=== PATIENT | male | born 1995 | race Caucasian/White ===

== ENCOUNTER 2020-09-25 17:37 | Outpatient (REF) | payer OTHER, SELFPAY | END 2020-09-25 17:38 | disposition home or self-care (01) | LOC: HO.LAB 17:37 | PROVIDERS: Visit Provider Internal Medicine | DX: Z20.828 Contact with and (suspected) exposure to other viral communicable diseases (principal) | CPT/HCPCS: C9803; U0003 ==

== ENCOUNTER 2023-04-04 18:26 | Emergency (ER) | payer OTHER, SELFPAY ==
[2023-04-04 18:29] VITALS: BP 147/97; PULSE 80; RESP 18; TEMP 36.7; O2SAT 97; BMI 29.8
--- NOTE | 2023-04-04 18:30 | ED_ITS ---
HPI - Chest Pain General Chief Complaint: General Medical Stated Complaint: Chest Pain/Left arm pain/ Head pain Time Seen by Provider: 04/04/23 19:57 Related Data Previous Rx's Medication Instructions Recorded ibuprofen 600 mg tablet 600 mg PO Q6H PRN fever or pain 04/04/23 #30 tabs Allergies Allergy/AdvReac Type Severity Reaction Status Date / Time No Known Allergies Allergy Unverified 06/14/20 19:51 [No Known Allergies*] Physical Exam Vital Signs: Vital Signs: Last Vital Signs Temp 98.4 F 04/04/23 20:00 Pulse 79 04/04/23 20:04 Resp 16 04/04/23 20:04 BP 121/83 04/04/23 20:04 Pulse Ox 98 04/04/23 20:04 O2 Del Method Room Air 04/04/23 20:04 BMI result Body Mass Index 29.8 Course Course Course Narrative: RME: 27yo M w/no sig PMHx c/o intermittent left sided CP radiaiting to LUE and head x awhile worsening today. Also reports assoc dizziness when standing lasting a few seconds. Admits to similar sx many years ago w/negative w/u. denies SOB Anxious during eval, VSS EKG, labs, CXR ordered Full HPI, ROS and PE to be performed by primary ED provider. Medications Administered Discontinued Medications Generic Name Dose Route Start Last Admin Trade Name Adamq PRN Reason Stop Dose Admin Ketorolac Tromethamine 30 mg 04/04/23 20:06 04/04/23 20:15 Ketorolac Tromethamine 30 Mg/Ml Vial IVPUSH 04/04/23 20:07 30 mg ONCE ONE Administration Medical Decision Making Lab Data 04/04/23 18:55 04/04/23 18:55 Labs: Lab Results 04/04/23 04/04/23 04/04/23 Range/Units 18:55 18:55 18:55 WBC 9.5 (4.8-10.8) X10*3/uL RBC 4.85 (4.60-5.80) X10*6/uL Hgb 14.0 (14.0-18.0) g/dl Hct 41.1 L (42.0-52.0) % MCV 84.7 (80.0-98.0) fL MCH 28.9 (27.0-33.0) pg MCHC 34.1 (31.0-36.0) g/dl RDW 13.2 (11.0-16.0) % Plt Count 317 (160-400) X10*3/uL MPV 9.4 (9.4-12.4) fL Immature Gran % (Auto) 0.3 (0.0-0.4) % Neut % (Auto) 69.6 (45-73) % Lymph % (Auto) 20.6 (20-40) % Bosque % (Auto) 8.4 (2-11) % Eos % (Auto) 0.7 (0-4) % Baso % (Auto) 0.4 (0-2) % Lymph # (Auto) 2.0 (1.2-4.9) X10*3/uL [place] # (Auto) 0.8 (0.1-1.2) X10*3/uL Eos # (Auto) 0.1 (0.0-0.4) X10*3/uL Baso # (Auto) 0.0 (0.0-0.2) X10*3/uL Abs Immat Gran (auto) 0.03 (0.00-0.03) X10*3/uL Absolute Neuts (auto) 6.6 (2.0-8.3) x10*3/uL Absolute Nucleated RBC 0.000 (0.0-0.012) X10*3/uL Nucleated RBC % (auto) 0.0 (0.0-0.2) /100WBC PT (10.0-13.1) SEC INR (0.9-1.1) Sodium 140 (135-145) mmol/L Potassium 3.9 (3.3-5.1) mmol/L Chloride 102 (96-108) mmol/L Carbon Dioxide 27 (22-29) mmol/L Anion Gap 15 (12-20) BUN 10 (9-16) mg/dL Creatinine 1.03 (0.5-1.4) mg/dL Estim Creat Clear Calc 111.9 Estimated GFR > 60 Random Glucose 129 H (60-115) mg/dL Calcium 9.8 (8.4-10.2) mg/dL Magnesium 2.2 (1.6-2.6) mg/dL Total Bilirubin 0.7 (0.0-1.0) mg/dL Direct Bilirubin 0.2 (0.0-0.5) mg/dL AST 14 (5-37) U/L ALT 11 (0-40) U/L Alkaline Phosphatase 90 (39-117) U/L Troponin I High Sens < 2.7 (<3.5-35.0) ng/L Total Protein 7.9 (6.5-8.0) g/dL Albumin 4.6 (3.5-5.0) g/dL TSH 0.79 (0.32-4.0) uIU/mL 04/04/23 Range/Units 18:55 WBC (4.8-10.8) X10*3/uL RBC (4.60-5.80) X10*6/uL Hgb (14.0-18.0) g/dl Hct (42.0-52.0) % MCV (80.0-98.0) fL MCH (27.0-33.0) pg MCHC (31.0-36.0) g/dl RDW (11.0-16.0) % Plt Count (160-400) X10*3/uL MPV (9.4-12.4) fL Immature Gran % (Auto) (0.0-0.4) % Neut % (Auto) (45-73) % Lymph % (Auto) (20-40) % Bosque % (Auto) (2-11) % Eos % (Auto) (0-4) % Baso % (Auto) (0-2) % Lymph # (Auto) (1.2-4.9) X10*3/uL Bosque # (Auto) (0.1-1.2) X10*3/uL Eos # (Auto) (0.0-0.4) X10*3/uL Baso # (Auto) (0.0-0.2) X10*3/uL Abs Immat Gran (auto) (0.00-0.03) X10*3/uL Absolute Neuts (auto) (2.0-8.3) x10*3/uL Absolute Nucleated RBC (0.0-0.012) X10*3/uL Nucleated RBC % (auto) (0.0-0.2) /100WBC PT 11.5 (10.0-13.1) SEC INR 1.0 (0.9-1.1) Sodium (135-145) mmol/L Potassium (3.3-5.1) mmol/L Chloride (96-108) mmol/L Carbon Dioxide (22-29) mmol/L Anion Gap (12-20) BUN (9-16) mg/dL Creatinine (0.5-1.4) mg/dL Estim Creat Clear Calc Estimated GFR Random Glucose (60-115) mg/dL Calcium (8.4-10.2) mg/dL Magnesium (1.6-2.6) mg/dL Total Bilirubin (0.0-1.0) mg/dL Direct Bilirubin (0.0-0.5) mg/dL AST (5-37) U/L ALT (0-40) U/L Alkaline Phosphatase (39-117) U/L Troponin I High Sens (<3.5-35.0) ng/L Total Protein (6.5-8.0) g/dL Albumin (3.5-5.0) g/dL TSH (0.32-4.0) uIU/mL Discharge Plan Discharge Clinical Impression: Musculoskeletal chest pain Patient Disposition: Home, Self-Care Instructions: Noncardiac Chest Pain (ED) Additional Instructions: Your chest pain is not from the heart Take ibuprofen for pain Prescriptions: New ibuprofen 600 mg tablet 600 mg PO Q6H PRN (Reason: fever or pain) Qty: 30 0RF Stand Alone Forms: Work/School Release Interventions: ED Discharge Assessment Last Done: 04/04/23 20:19 Discharge Date/Time: 04/04/23 20:19
[2023-04-04 20:00] VITALS: BP 104/72; PULSE 67; RESP 16; TEMP 36.9; O2SAT 98
[2023-04-04 20:04] VITALS: BP 121/83; PULSE 79; RESP 16; O2SAT 98
--- NOTE | 2023-04-04 20:14 | MHC.EDTECH ---
PER PROVIDER ALFONSO SAID NOT TO DO ORTHOSTATICS VITALS .
== END 2023-04-04 20:19 | disposition home or self-care (01) ==
PROVIDERS: Emergency Provider Internal Medicine; PCP Internal Medicine
DX: R07.89 Other chest pain (principal)
CPT/HCPCS: 36415; 71045; 80048; 80076; 83735; 84443; 84484; 85025; 85610; 93005; 96374; 99284; J1885

== ENCOUNTER 2023-06-16 16:43 | Emergency (ER) | payer SELFPAY ==
[2023-06-16 17:54] VITALS: BP 136/100; PULSE 78; RESP 18; TEMP 36.8; O2SAT 98; BMI 27.2
--- NOTE | 2023-06-16 17:55 | ED_ITS ---
HPI - General Adult General Chief complaint: General Medical Stated complaint: Sore throat, body aches, fever Time Seen by Provider: 06/16/23 19:02 Source: patient Mode of arrival: ambulatory Limitations: no limitations History of Present Illness HPI narrative: Patient is a 28 year old male who presents to the ED since he's experiencing body aches, nasal congestion, throat pain, and headaches. He reports that his symptoms started yesterday morning and vomited while at work. His daughter is currently sick with the same symptoms. She was seen at a clinic and tested negative for COVID and flu. He notes associated sinus pressure due to the congestion. Patient took mucinex to help alleviate his symptoms. Related Data Previous Rx's Medication Instructions Recorded ibuprofen 600 mg tablet 600 mg PO Q6H PRN fever or pain 04/04/23 #30 tabs Allergies Allergy/AdvReac Type Severity Reaction Status Date / Time No Known Allergies Allergy Unverified 06/14/20 19:51 [No Known Allergies*] Review of Systems Constitutional: Constitutional: Reports body ache(s), Reports fatigue and Reports headache(s) ENT: Reports headache(s), Reports nasal congestion, Reports sinus pain and R eports sore throat Cardiovascular: Cardiovascular: Denies chest pain and Denies dyspnea Respiratory: Respiratory: Reports cough, Reports pain with cough and Denies dyspnea Gastrointestinal: Gastrointestinal: Denies abdominal pain and Reports vomiting Musculoskeletal: Musculoskeletal: Denies back pain Neurologic: Reports headache(s) Endocrine: Endocrine: Reports fatigue [facility] Social History Social History Advance Directives: No Advance Directives Information Provided: No Physical Exam ED Vital Signs: Vital Signs - 24 hr 06/16/23 17:54 Temperature 98.2 F Pulse Rate 78 Respiratory Rate 18 Blood Pressure 136/100 H Pulse Oximetry 98 Oxygen Delivery Method Room Air BMI result Body Mass Index 27.2 Const General: cooperative, healthy appearing, comfortable, no acute distress, alert, awake and Physically active Orientation/consciousness: patient oriented x3 Limitations: no limitations HENMT Head: Yes normocephalic and Yes atraumatic Face and sinus: Yes face symmetric Mouth: Normal oral and palatal mucosa present and tongue normal Teeth and gingiva: dentition normal Throat: No posterior oropharynx normal (Erythematous without exudates) Neck Neck: Yes full ROM and No no meningeal signs Resp Effort & Inspection: normal respiratory effort and able to speak in complete sentences Auscultation: clear to auscultation bilaterally Cardio Rate: regular rate Rhythm: regular rhythm Skin General skin exam: no rashes or lesions noted Neuro General: patient oriented x3 and No no meningeal signs Course Course Course Narrative: This is an RME: Additional HPI, ROS, PE not included below will be deferred to primary provider. This is a [id number]-male, presenting to the ER with complaints of sore throat, body aches since yesterday. BL tonsils with erythema and exudates. Admits to vomiting two times today. No vomiting. Daughter at home is sick with similar symptoms. Plan: COVID/RSV/FLU, strep Medical Decision Making Medical Decision Making MDM Narrative: 28-year-old male presents for evaluation of upper respiratory symptoms. He tested negative for influenza, COVID, strep, RSV. His daughter had similar symptoms indicating likely viral etiology. Patient may discharge with symptomatic care only Differential Diagnosis Differential Diagnoses: The differential diagnosis associated with the presentation includes Upper respiratory infection Acute viral syndrome COVID-19 Influenza Strep pharyngitis Lab Data Labs: Lab Results 06/16/23 Range/Units 18:20 Influenza Type A (PCR) NEGATIVE (Negative) Influenza Type B (PCR) NEGATIVE (Negative) RSV RNA Qual (PCR) NEGATIVE (Negative) SARS-CoV-2 RNA (RT-PCR) NEGATIVE (Negative) S. pyogenes GrpA SANTO Negative (Negative) Discharge Plan Discharge Clinical Impression: Acute upper respiratory infection Patient Disposition: Home, Self-Care Instructions: Upper Respiratory Infection (ED) Additional Instructions: You tested negative for COVID, influenza, RSV, strep throat. Use Motrin/Tylenol for body aches You may use [id number] decongestion or cough medicine Your symptoms should improve in the next 3-5 days Drink lots of water Follow-up your primary doctor Prescriptions: No Action ibuprofen 600 mg tablet 600 mg PO Q6H PRN (Reason: fever or pain) Qty: 30 0RF Stand Alone Forms: Work/School Release
[2023-06-16 18:35] LABS: IDNOW Serial# 08D9AD1C; Strep A Nucleic Acid Negative (Negative)
[2023-06-16 19:22] LABS: Influenza A PCR NEGATIVE (Negative); Influenza B PCR NEGATIVE (Negative); Resp Syncy Virus RNA Qual PCR NEGATIVE (Negative); SARS COV2 PCR INHOUSE NEGATIVE (Negative)
== END 2023-06-16 20:03 | disposition home or self-care (01) ==
PROVIDERS: Physician Assistant Medical; Emergency Provider Internal Medicine
DX: J06.9 Acute upper respiratory infection, unspecified (principal); Z20.822 Contact with and (suspected) exposure to COVID-19; Z20.828 Contact with and (suspected) exposure to other viral communicable diseases; J02.9 Acute pharyngitis, unspecified
CPT/HCPCS: 0241U; 87651; 99282; 99283

== ENCOUNTER 2023-08-27 08:54 | Outpatient (AMB) | payer OTHER, SELFPAY ==
[2023-08-27 08:55] VITALS: BP 140/96; PULSE 82; BMI 27.3
--- NOTE | 2023-08-27 08:55 | A.OFFPC_ITS ---
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: Not Required per policy Accompanied by: Self / Same As Patient Allergies No Known Allergies [No Known Allergies*] Allergy (Verified 08/27/23 09:21) Medication List - Last Reconciled 08/27/23 by Tremayne Pitts MD ibuprofen 600 mg PO Q6H PRN Tobacco use date assessed: 08/27/23 Dental Screening Dental Screen Date: 08/27/23 Did you have a dental visit in the last 12 months?: Yes Did you have a dental problem in the last 6 months where you did not have access to dental care?: No Was dental information given to patient?: Patient has dentist HPI New patient-requesting physical HPI Details Patient comes in today for his annual physical examination and to establish care - is a new patient to the practice States that he has not had a PCP in the past few years and he used to live in [place], [place] and just recently moved here to [facility]. States that he has been experiencing recurrent left-sided chest wall pain and left upper back pain (around the left scapula) for at least 6 to 7 years now Relates that he has been to the ER several times for the same complaint over the past several years and more recently here to the ER at [facility] in March 2023 for left-sided chest wall pains States that he has been checked out multiple times and advised of the same thing - that his recurrent left chest wall pain is mostly muscular in origin and has nothing to do with his heart States that his chest wall pains are mostly sharp and occur in spasms when they come on and he had not been able to identify anything in particular that seems to trigger or aggravate them but notes that they do not seem to be related to activity or exertion as they tend to occur randomly at any time throughout the day or night Relates (+) some sensation of shortness of breath mostly when his chest wall pain is more pronounces and states that he would have a hard time sleeping at night when they are ongoing but otherwise has had no trouble with his breathing ordinarily He denies any headaches or dizziness No nausea/vomiting, no abdominal pain No change in bowel habits noted He denies any acute urinary symptoms PFSH Medical History (Updated 08/27/23 @ 10:02 by Tremayne Pitts MD) Overweight (BMI 25.0-29.9) Surgical History (Updated 08/27/23 @ 09:25 by Tremayne Pitts MD) No pertinent past surgical history Social History Housing: House Patient Tobacco Use Status: Never used Tobacco e-Cigarette/Vaping Use: Currently Using Current occupational status: employed Cognitive needs: No Hearing needs: No Vision needs: No Questionnaire PHQ-9 Over the last 2 weeks, how often have you been bothered by any of the following problems? 1. Little interest or pleasure in doing things: not at all 2. Feeling down, depressed, or hopeless: not at all 3. Trouble falling or staying asleep, or sleeping too much: not at all 4. Feeling tired or having little energy: not at all 5. Poor appetite or overeating: not at all 6. Feeling bad about yourself - or that you are a failure or have let yourself or your family down: not at all 7. Trouble concentrating on things, such as reading the newspaper or watching television: not at all 8. Moving or speaking so slowly that other people could have noticed. Or the opposite - being so fidgety or restless that you have been moving around a lot more than usual: not at all 9. Thoughts that you would be better off or of hurting yourself in some way: not at all Total score: 0 Depression Screening Interpretation: Negative Depression Screening Done: Yes 60068 - PHQ-9 Billing: Yes Source: Developed by Drs. Harish Frank, Diamond Pruitt, Dylan Worrell and colleagues, with an educational ricardo from [employer]. Thrive Questionnaire Date Thrive assessed: 08/27/23 I am a: Patient What is your living situation today?: I have a steady place to live Within the past 12 months, did the food you bought not last and you didn't have the money to get more?: Never true Within the past 12 months, did you worry whether your food would run out before you got money to buy more?: Never true Do you have trouble paying for medicines?: No Do you have trouble getting transportation to medical appointments?: No Do you have trouble paying your heating and electricity bill?: No Do you have trouble taking care of your child, family member or friend?: No Do you have trouble with day-to-day activities such as bathing, preparing meals, shopping, managing finances, etc.?: No Are you currently unemployed and looking for a job?: No Are you interested in more education?: No Please select the resources that you would like help with: None Currently or been in a relationship where the following occur: no concerns reported AUDIT C Alcohol Use Questionnaire (AUDIT-C) 1. How often do you have a drink containing alcohol?: Never Total Score: 0 Score Reviewed/Action Taken: Yes CHERI-7 AMB Questionnaire CHERI-7 Date CHERI - 7 assessed: 08/27/23 Feeling nervous, anxious, or on edge: 0 = Not at all Not being able to stop or control worryin = Not at all Worrying too much about different things: 0 = Not at all Trouble relaxin = Not at all Being so restless that it is hard to sit still: 0 = Not at all Becoming easily annoyed or irritable: 0 = Not at all Feeling afraid as if something awful might happen: 0 = Not at all Total CHERI-7 score (0-4 normal; 5-9 mild; 10-14 moderate; 15-21 severe): 0 Source: Developed by Drs. Harish Frank, Diamond Pruitt, Dylan Worrell and colleagues, with an educational ricardo from [employer]. Review of Systems Const Denies chills, Reports difficulty sleeping (mostly due to his persistent left- sided chest wall pain), Denies fatigue, Denies fever(s), Denies headache(s), Denies malaise and Denies weakness Eyes Denies blurry vision, Denies change in vision, Denies irritation and Denies itchy eyes ENT Denies dysphagia, Denies dizziness, Denies otalgia, Denies headache(s), Denies nasal congestion, Denies neck pain, Denies odynophagia and Denies sore throat Card Reports chest pain (persistent over the left chest wall area), Denies rapid heart rate, Denies irregular heart rhythm, Denies palpitations and Denies dyspnea Resp Denies chest congestion, Denies cough, Denies dyspnea and Denies wheezing GI Denies abdominal pain, Denies bloating, Denies constipation, Denies dysphagia, Denies heartburn, Denies diarrhea, Denies nausea, Denies odynophagia and Denies vomiting Denies hematuria, Denies difficulty urinating, Denies dysuria, Denies urinary frequency and Denies urinary urgency Musc Reports back pain (on and off over the left upper back around the scapular area), Denies arthralgias, Denies joint swelling, Denies muscle weakness and Denies neck pain Skin/Breast Denies change in pigmentation, Denies lesions, Denies rash and Denies unusual bruising Neuro Denies dizziness, Denies headache(s), Denies paresthesias and Denies weakness Endo Denies fatigue and Denies palpitations Aller/Immun Denies itchy eyes and Denies wheezing Physical exam (Primary Care) Vital Signs: Last Vital Signs Pulse 82 08/27/23 08:55 BP 140/96 H 08/27/23 08:55 Oxygen Delivery Method Room Air 08/27/23 08:55 BMI result Body Mass Index 27.3 Tobacco/Smoking Status: Tobacco use Status Tobacco use date assessed 08/27/23 08/27/23 09:04 Patient Tobacco Use Status Never used Tobacco 08/27/23 09:04 e-Cigarette/Vaping Use Currently Using 08/27/23 09:04 PHQ-9: PHQ-9 Score PHQ-9: Total score 0 08/27/23 09:04 Depression Screening Interpretation: Negative Thrive Assessment: Date of Thrive Assessment Date Thrive assessed 08/27/23 08/27/23 09:04 Currently or been in a relationship where the following occur: no concerns reported Const General: no acute distress, alert and awake Orientation/consciousness: patient oriented x3 HENMT Head: Yes normocephalic and Yes atraumatic Ears: external ears normal, TM's normal bilaterally and EAC's normal General nose exam: No nasal discharge present Face and sinus: Yes normal facial exam and Yes sinuses nontender Teeth and gingiva: dentition normal Throat: Yes posterior oropharynx normal and Yes tonsils normal (no TP congestion) Eyes Eyelids: Yes eyelids normal Conjunctivae: conjunctivae normal Pupils: Equal, round and reactive pupils present EOM: EOMs intact bilaterally Neck Neck: Yes no lymphadenopathy and Yes supple Thyroid: Thyroid normal Chest Other: NO reproducible tenderness on exam of the left chest wall, even with deep palpation of the chest wall muscles Chest palpation & inspection: normal inspection of the chest and no tenderness Resp Auscultation: clear to auscultation bilaterally, no rales and no wheezes Cardio Rate: regular rate Rhythm: regular rhythm Heart sounds: no murmurs GI Palpation (GI): Soft to palpation, nontender and No hepatosplenomegaly present Auscultation: normal bowel sounds General: Yes no CVA tenderness Back/Spine/Pelvis Other: NO tenderness on palpation / exam of the left upper back muscles and over the left periscapular/scapular areas Back: no CVA tenderness Thoracic/Lumbar Spine: thoracic and lumbar spine normal to inspection Skin Lesions: no lesions Rashes: no rashes Neuro General: patient oriented x3, moves all extremities, no focal motor deficits and CN's II-XI intact bilaterally Cranial nerves: Yes Equal, round and reactive pupils present Cognition (Neuro): normal cognition Gait exam (Neuro): Normal gait present Extrem General: Yes no clubbing, cyanosis or edema Left upper extremity: shoulder/upper arm Details: normal ROM; no tenderness Results Reviewed Results Reviewed: Laboratory Tests 04/04/23 18:55 WBC 9.5 Hgb 14.0 Hct 41.1 L Plt Count 317 Sodium 140 Potassium 3.9 Creatinine 1.03 Estimated GFR > 60 Random Glucose 129 H Calcium 9.8 Magnesium 2.2 AST 14 ALT 11 Troponin I High Sens < 2.7 TSH 0.79 Assessment and Plan Assessment & Plan (1) Annual physical exam: Code(s): Z00.00 - Encounter for general adult medical examination without abnormal findings Plan: Results of his labs done at the ER back in March 2023 reviewed and discussed with patient (2) Left-sided chest wall pain: Code(s): R07.89 - Other chest pain Plan: Labs and chest x-rays done at the ER in March 2023 came out normal Patient also relates that he has been checked out multiple times for the same complaint of left-sided chest wall pain over the years and have always been advised that his tests/exams all came out normal and that his symptoms are NOT cardiac-related and are likely due to some musculoskeletal injury As his symptoms have been ongoing for years, will refer him to physical therapy/physiatry for further evaluation and management (3) Elevated blood pressure reading: Code(s): R03.0 - Elevated blood-pressure reading, without diagnosis of hypertension Plan: Is most likely situational - initial BP reading was high here in the office at 140/96 mm but repeat BP several minutes later showed that his BP is starting to come down at 128/90 mm Patient is advised to continue monitoring his blood pressure regularly - goal is systolic BP of 120 mm or less Discussed low sodium diet although advised again that his elevated BP was likely due to a combination of anxiety and pain (4) Vapes nicotine containing substance: Code(s): Z72.0 - Tobacco use Plan: Counseled on complete smoking cessation (5) Overweight (BMI 25.0-29.9): Code(s): E66.3 - Overweight Plan: Discussed diet/exercise as tolerated/lose weight Plan Follow up in 6 months Orders: Orders PT Evaluation and Treatment Today R07.89 - Other chest pain Coding Level of Care Code New Pt Prev Care 18-39yr([id number] Diagnoses Annual physical exam Z00.00 Left-sided chest wall pain R07.89 Elevated blood pressure reading R03.0 Vapes nicotine containing substance Z72.0 Overweight (BMI 25.0-29.9) E66.3
[2023-08-27 09:35] VITALS: BP 128/90
== END 2023-08-27 09:43 | disposition home or self-care (01) ==
PROVIDERS: PCP Internal Medicine; Visit Provider Internal Medicine
DX: Z00.00 Encounter for general adult medical examination without abnormal findings (principal); R07.89 Other chest pain; R03.0 Elevated blood-pressure reading, without diagnosis of hypertension; Z72.0 Tobacco use; E66.3 Overweight
CPT/HCPCS: 99385

== ENCOUNTER 2024-02-25 09:31 | Outpatient (AMB) | payer SELFPAY ==
[2024-02-25 09:38] VITALS: BP 122/76; PULSE 76; O2SAT 99; BMI 27.3
--- NOTE | 2024-02-25 09:38 | MHC.PC.OV ---
Vital Signs 02/25/24 09:38 Height 5 ft 9 in Weight 185 lb BMI 27.3 BP 122/76 Blood Pressure Location Lt brachial Position Sitting Pulse 76 Pulse Source Pulse Oximeter Pulse Oximetry (%) 99 Oxygen Delivery Method Room Air Intake Visit Reasons: 6mth f/u Spanish Linguist Required: No Environmental Director: Not Required per policy Accompanied by: Self / Same As Patient Allergies No Known Allergies [No Known Allergies*] Allergy (Verified 02/25/24 10:31) Medication List - Last Reconciled 02/25/24 by Tremayne Pitts MD ibuprofen 600 mg PO Q6H PRN Tobacco use date assessed: 02/25/24 Dental Screening Dental Screen Date: 02/25/24 Did you have a dental visit in the last 12 months?: Yes Did you have a dental problem in the last 6 months where you did not have access to dental care?: No Was dental information given to patient?: Patient has dentist HPI 6mth f/u HPI Details Patient comes in today for his follow up visit States that he feels okay States that he never went to physical therapy after his last visit as the left-sided chest wall pain that he was experiencing then cleared up completely over the next day or two after his visit and has not recurred since He denies any headaches or dizziness Denies any chest pains, no SOB No nausea/vomiting, no abdominal pain No change in bowel habits noted States that he wants to have some STD testing done - he denies any acute symptoms and states that he just [facility] be sure [facility] Medical History Overweight (BMI 25.0-29.9) Surgical History No pertinent past surgical history Social History Housing: House Patient Tobacco Use Status: Never used Tobacco e-Cigarette/Vaping Use: Currently Using Current occupational status: employed Cognitive needs: No Hearing needs: No Vision needs: No Questionnaire PHQ-9 Over the last 2 weeks, how often have you been bothered by any of the following problems? 1. Little interest or pleasure in doing things: not at all 2. Feeling down, depressed, or hopeless: not at all 3. Trouble falling or staying asleep, or sleeping too much: not at all 4. Feeling tired or having little energy: not at all 5. Poor appetite or overeating: not at all 6. Feeling bad about yourself - or that you are a failure or have let yourself or your family down: not at all 7. Trouble concentrating on things, such as reading the newspaper or watching television: not at all 8. Moving or speaking so slowly that other people could have noticed. Or the opposite - being so fidgety or restless that you have been moving around a lot more than usual: not at all 9. Thoughts that you would be better off or of hurting yourself in some way: not at all Total score: 0 Depression Screening Interpretation: Negative Depression Screening Done: Yes 35139 - PHQ-9 Billing: Yes Source: Developed by Drs. Harish Frank, Diamond Pruitt, Dylan Worrell and colleagues, with an educational ricardo from [employer]. Thrive Questionnaire Date Thrive assessed: 02/25/24 I am a: Patient What is your living situation today?: I have a steady place to live Within the past 12 months, did the food you bought not last and you didn't have the money to get more?: Never true Within the past 12 months, did you worry whether your food would run out before you got money to buy more?: Never true Do you have trouble paying for medicines?: No Do you have trouble getting transportation to medical appointments?: No Do you have trouble paying your heating and electricity bill?: No Do you have trouble taking care of your child, family member or friend?: No Do you have trouble with day-to-day activities such as bathing, preparing meals, shopping, managing finances, etc.?: No Are you currently unemployed and looking for a job?: No Are you interested in more education?: No Please select the resources that you would like help with: None Currently or been in a relationship where the following occur: no concerns reported THRIVE Score: 0 AUDIT C Alcohol Use Questionnaire (AUDIT-C) 1. How often do you have a drink containing alcohol?: Never 3. How often do you have six or more drinks on one occasion?: Never Total Score: 0 Score Reviewed/Action Taken: Yes CHERI-7 AMB Questionnaire CHERI-7 Date CHERI - 7 assessed: 02/25/24 Feeling nervous, anxious, or on edge: 0 = Not at all Not being able to stop or control worryin = Not at all Worrying too much about different things: 0 = Not at all Trouble relaxin = Not at all Being so restless that it is hard to sit still: 0 = Not at all Becoming easily annoyed or irritable: 0 = Not at all Feeling afraid as if something awful might happen: 0 = Not at all Total CHERI-7 score (0-4 normal; 5-9 mild; 10-14 moderate; 15-21 severe): 0 Source: Developed by Drs. Harish Frank, Diamond Pruitt, Dylan Worrell and colleagues, with an educational ricardo from [employer]. Review of Systems Const Denies chills, Denies fatigue, Denies fever(s) and Denies headache(s) ENT Denies dysphagia, Denies dizziness, Denies otalgia, Denies headache(s), Denies neck pain, Denies odynophagia and Denies sore throat Card Denies chest pain, Denies palpitations and Denies dyspnea Resp Denies cough and Denies dyspnea GI Denies abdominal pain, Denies constipation, Denies dysphagia, Denies heartburn, Denies diarrhea, Denies nausea, Denies odynophagia and Denies vomiting Denies dysuria, Denies nocturia and Denies urinary frequency Musc Denies back pain and Denies neck pain Skin/Breast Denies rash Neuro Denies dizziness and Denies headache(s) Endo Denies fatigue and Denies palpitations Physical exam (Primary Care) Vital Signs: Last Vital Signs Pulse 76 02/25/24 09:38 BP 122/76 02/25/24 09:38 Pulse Ox 99 02/25/24 09:38 Oxygen Delivery Method Room Air 02/25/24 09:38 BMI result Body Mass Index 27.3 Tobacco/Smoking Status: Tobacco use Status Tobacco use date assessed 02/25/24 02/25/24 09:40 Patient Tobacco Use Status Never used Tobacco 02/25/24 09:40 e-Cigarette/Vaping Use Currently Using 02/25/24 09:40 PHQ-9: PHQ-9 Score PHQ-9: Total score 0 02/25/24 09:45 Depression Screening Interpretation: Negative Thrive Assessment: Date of Thrive Assessment Date Thrive assessed 02/25/24 02/25/24 09:40 Currently or been in a relationship where the following occur: no concerns reported Const General: no acute distress and alert HENMT Ears: TM's normal bilaterally and EAC's normal Throat: Yes posterior oropharynx normal and Yes tonsils normal (no TP congestion) Neck Neck: Yes no lymphadenopathy and Yes supple Thyroid: Thyroid normal Resp Auscultation: clear to auscultation bilaterally, no rales and no wheezes Cardio Rate: regular rate Rhythm: regular rhythm Heart sounds: no murmurs GI Palpation (GI): Soft to palpation and nontender Auscultation: normal bowel sounds General: Yes no CVA tenderness Back/Spine/Pelvis Back: no CVA tenderness Skin Rashes: no rashes Extrem General: Yes no clubbing, cyanosis or edema Assessment and Plan Assessment & Plan (1) Left-sided chest wall pain: Code(s): R07.89 - Other chest pain Plan: Resolved with no recurrence Chest x-rays done at the ER in March 2023 came out normal Patient also recalls that he has been checked out multiple times for the same complaint of left-sided chest wall pain over the years and have always been advised that his tests/exams all came out normal and that his symptoms are NOT cardiac-related and are likely due to some musculoskeletal injury (2) Elevated blood pressure reading: Code(s): R03.0 - Elevated blood-pressure reading, without diagnosis of hypertension Plan: Is most likely situational - initial BP reading was high here in the office at 140/96 mm but repeat BP several minutes later showed that his BP is starting to come down at 128/90 mm; his blood pressure today is also completely normal (3) Vapes nicotine containing substance: Code(s): Z72.0 - Tobacco use Plan: Counseled again on complete smoking cessation (4) Overweight (BMI 25.0-29.9): Code(s): E66.3 - Overweight Plan: Reinforced diet/exercise as tolerated/lose weight (5) Potential exposure to STD: Code(s): Z20.2 - Contact with and (suspected) exposure to infections with a predominantly sexual mode of transmission Plan: Per request, will send him for STD testing, including HSV Plan To return as scheduled in August 2024 for his annual physical examination Patient is advised to try to get his routine labs done BEFORE he comes in for his appointment so we can go over the results of his recent labs in a more timely manner Orders: Orders HIV Ab/Ag Today Z20.2 - Contact with and (suspected) exposure to infections with a predominantly sexual mode of transmission Syphilis Screen Today Z20.2 - Contact with and (suspected) exposure to infections with a predominantly sexual mode of transmission Comprehensive [place]. Panel Fast 6 Months E78.00 - Pure hypercholesterolemia, unspecified, Z00.00 - Encounter for general adult medical examination without abnormal findings Lipid Panel 6 Months E78.00 - Pure hypercholesterolemia, unspecified, Z00.00 - Encounter for general adult medical examination without abnormal findings TSH reflex Free T4 6 Months E78.00 - Pure hypercholesterolemia, unspecified, Z00.00 - Encounter for general adult medical examination without abnormal findings UA CC w/rflx Micro + Cult 6 Months R30.0 - Dysuria, Z00.00 - Encounter for general adult medical examination without abnormal findings Hepatitis B,C Profile Today Z20.2 - Contact with and (suspected) exposure to infections with a predominantly sexual mode of transmission CT NG by PCR Today Z20.2 - Contact with and (suspected) exposure to infections with a predominantly sexual mode of transmission HSV I and II,IHC Today Z20.2 - Contact with and (suspected) exposure to infections with a predominantly sexual mode of transmission Complete Blood Count Auto Diff 6 Months D64.9 - Anemia, unspecified, Z00.00 - Encounter for general adult medical examination without abnormal findings Vitamin D 25-OH Total 6 Months E55.9 - Vitamin D deficiency, unspecified, Z00.00 - Encounter for general adult medical examination without abnormal findings Coding Level of Care Code Est Pt Level 3 (79818) Diagnoses Left-sided chest wall pain R07.89 Elevated blood pressure reading R03.0 Vapes nicotine containing substance Z72.0 Overweight (BMI 25.0-29.9) E66.3 Potential exposure to STD Z20.2
== END 2024-02-25 10:37 | disposition home or self-care (01) ==
PROVIDERS: PCP Internal Medicine; Visit Provider Internal Medicine
DX: R07.89 Other chest pain (principal); R03.0 Elevated blood-pressure reading, without diagnosis of hypertension; Z72.0 Tobacco use; E66.3 Overweight; Z20.2 Contact with and (suspected) exposure to infections with a predominantly sexual mode of transmission
CPT/HCPCS: 99213

== ENCOUNTER 2024-02-25 10:48 | Outpatient (REF) | payer OTHER, SELFPAY ==
[2024-02-25 12:34] LABS: HBc Num1 0.09 S/CO (0.00-0.79); HBsAGNum1 0.25 S/CO (0.00-0.99); HIV AB/AG Nonreactive (Nonreactive); HIV Num 1 0.05 S/CO (0.00-0.99); Hepatitis B Core Antibody Nonreactive (Nonreactive); Hepatitis B Surface Antigen Negative (Negative); ~HepC Num1 0.14 S/CO (0.00-0.79); ~Hepatitis B Surface Antibody NONREACTIVE (Nonreactive); ~Hepatitis C Antibody Nonreactive (Nonreactive)
[2024-02-25 12:36] LABS: Syphilis Screen Nonreactive (Nonreactive)
== END 2024-02-25 10:49 | disposition home or self-care (01) ==
LOC: HO.LAB 10:48
PROVIDERS: PCP Internal Medicine; Visit Provider Internal Medicine
DX: Z20.2 Contact with and (suspected) exposure to infections with a predominantly sexual mode of transmission (principal)
CPT/HCPCS: 36415; 86704; 86706; 86780; 86803; 87340; 87389